=== PATIENT | female | born 1960 | race Caucasian/White ===

== ENCOUNTER → 2022-05-08 | Outpatient (CLI) | payer BC | LOC: MHCPAIN 09:27 | DX: M47.817 Spondylosis without myelopathy or radiculopathy, lumbosacral region (principal); M53.3 Sacrococcygeal disorders, not elsewhere classified; M54.50 Low back pain, unspecified | CPT/HCPCS: G0463 ==

== ENCOUNTER → 2022-05-16 | Outpatient (CLI) | payer BC | LOC: MHCPAIN 10:50 | DX: M47.817 Spondylosis without myelopathy or radiculopathy, lumbosacral region (principal); M53.3 Sacrococcygeal disorders, not elsewhere classified; M54.50 Low back pain, unspecified ==

== ENCOUNTER → 2022-06-03 | Outpatient (CLI) | payer BC | LOC: MHCPAIN 12:05 | DX: M47.817 Spondylosis without myelopathy or radiculopathy, lumbosacral region (principal); M54.50 Low back pain, unspecified; M53.3 Sacrococcygeal disorders, not elsewhere classified | CPT/HCPCS: G0463 ==

== ENCOUNTER → 2022-06-10 | Outpatient (CLI) | payer BC | LOC: MHCPAIN 13:27 | DX: M47.817 Spondylosis without myelopathy or radiculopathy, lumbosacral region (principal); M53.3 Sacrococcygeal disorders, not elsewhere classified; M54.50 Low back pain, unspecified | CPT/HCPCS: G0463; J1100; J2250; J3010 ==

== ENCOUNTER → 2024-09-02 | Outpatient (CLI) | payer BC ==
[~2024-09-02] MED LIST: Lidocaine PF 2% (20 MG/ML) 5 ML VIAL ONE; Midazolam 2 MG/2 ML VIAL ONE; fentaNYL 50 MCG/ML 2 ML VIAL ONE
== END ==
LOC: MHCPAIN 13:08
DX: M47.817 Spondylosis without myelopathy or radiculopathy, lumbosacral region (principal); M54.50 Low back pain, unspecified; M96.1 Postlaminectomy syndrome, not elsewhere classified; Z98.1 Arthrodesis status
CPT/HCPCS: J0665; J2250; J3010